=== PATIENT | female | born 1960 | race Caucasian/White ===

== ENCOUNTER 2021-11-16 11:40 | Outpatient (CLI) | payer BC, SELFPAY ==
--- NOTE | ~2021-11-16 | NM_ITS ---
EXAMINATION: NM pulmonary perfusion DATE: 11/16/2021 12:53 INDICATION: Dyspnea on exertion TECHNIQUE: 5.6 mCi Tc-99m MAA by intravenous route. Scintigraphic images of the chest were obtained. COMPARISON: Chest radiograph dated 11/16/2021 FINDINGS: There is relatively homogeneous perfusion throughout the lungs. No discrete perfusion defects identi fied. IMPRESSION: 1. Normal study. Low probability for pulmonary embolism. Reviewed, dictated and finalized at location A.
--- NOTE | ~2021-11-16 | XR_ITS ---
EXAMINATION: XR chest 2V 11/16/2021 12:13 INDICATION: Dyspnea with exertion PROCEDURE: 2 view chest COMPARISON: No prior studies for comparison. FINDINGS: The lungs are clear. The cardiomediastinal silhouette is within normal limits. There are no pleural effusions. There is no pneumothorax suspected. There is an oval radiopaque device overly ing the upper chest anteriorly on the lateral view, likely external to the patient. There are cholecy stectomy clips. IMPRESSION: 1: NO ACUTE CARDIOPULMONARY DISEASE. Reviewed, dictated and finalized at location A.
--- NOTE | 2021-11-17 06:41 | WPDSIXMINUTE ---
Six Minute Walk Procedure Procedure Performed Pulmonary Stress Test (6 min walk) Six Minute Walk Six Minute Walk: This is a 6 minute walk test. The test was performed and interpreted in accordance with the 2014 ERS/ATS task force guidelines. Findings: The patient's resting room air oxygen saturation measured by pulse oximetry was 95% and heart rate was 99 bpm. Patient ambulated for 335 meters and oxygen saturation remained 93 to 96%. Heart rate at the end of the study was 115 bpm. The patient did not qualify for supplemental oxygen at rest or with ambulation. There are no prior studies for comparison.
--- NOTE | 2021-11-17 06:42 | P.PCNPFT_ITS ---
PFT Procedure Performed PFT Procedure Performed Flow Vol Loop Spirometry w/o Bronchodil PFT Interpretation This is a pulmonary function test with spirometry, plethysmography and diffusing capacity. The test was performed and results interpreted in accordance with the 2019 and 2005 ATS/ERS Task Force guidelines respectively using the Global Lung Function Initiative-2012 reference equations. Patient demonstrated good effort and cooperation. Reproducibility criteria were met. The quality of the spirometry maneuver was Grade A. Findings: Spirometry: the contour the inspiratory and expiratory flow tracing are normal. The FVC is 2.49 L, 74% predicted. The FEV1 is 1.90 L, 73% predicted. The FEV1: FVC ratio is 77%. Respiratory muscle force: The maximal inspiratory pressure is 95 cm H2O, 131% predicted. The maximal expiratory pressure is 50 cm H2O, 36% predicted Impression: The spirometry is normal without evidence of an obstructive abnormality. The FVC and FEV1 are mildly reduced with a normal FEV1: FVC ratio suggestive of a ventilatory abnormality. If clinically indicated recommend plet hysmography to assess lung volumes. The maximal inspiratory pressure is normal and the maximal expiratory pressure value is below the lower limit of normal which is defined as the 5th percentile of predicted and thus suggests the presence of expiratory respiratory muscle weakness. Clinical correlation is recommended. In compared to previous spirometry from 09/09/2021 from an outside facility the pre bronchodilator FVC is unchanged from 2.25 L to 2.49 L. The pre bronchodilator FEV1 is unchanged from 1.71 L to 1.90 L. Clinical correlation is recommended.
== END 2021-11-16 11:41 | disposition home or self-care (01) ==
PROVIDERS: PCP Family Medicine; Visit Provider Internal Medicine Pulmonary Disease
DX: R06.09 Other forms of dyspnea (principal)
CPT/HCPCS: 71046; 78580; 94200; 94375; 94618; A9540

== ENCOUNTER 2021-11-20 07:28 | Outpatient (CLI) | payer BC, SELFPAY ==
--- NOTE | 2021-12-14 10:48 | WPDSLEEPSTUD ---
Sleep Study Date of Study: 11/20/21 Ordering Provider: Al Anderson MD Interpreting Physician: Malina Lenz MD Sleep Study Type: Split Polysomnogram Height: 1.68 m Weight: 104.326 kg Body Mass Index: 37.1 Neck Circumference (inches): 15 Mathews: 20 Reason for Sleep Study Difficulty falling asleep, waking through the night, non-restorative sleep Sleep History Rayne Ha is a 61-year-old woman who has problems falling asleep. She wakes throughout the night. She wakes up with a headache and she feels fatigued. There is a family history with her brother having sleep apnea. An uncle from sleep apnea. She has used muscle relaxers and other medicines to help her with sleep. She occasionally awakens from sleep feeling short of breath. She rarely awakens at night with heartburn, belching or coughing. She occasionally snores, occasionally loudly enough that others complain about it. She frequently has trouble sleeping with a cold. She frequently wakes up gasping for breath at night. She frequently has breathing problems at night observed by others. She occasionally sweats excessively at night and notices her heart pounding or beating irregularly at night. She constantly falls asleep during the day, occasionally involuntarily, never while driving. She constantly has loss of muscle tone with strong emotion and daytime difficulties due to excessive sleepiness. She occasionally feels paralyzed on waking or falling asleep. She occasionally has vivid dreamlike scenes on waking or falling asleep. She does not feel afraid to go to sleep. She rarely has nightmares. She occasionally remembers her dreams. She occasionally has racing thoughts, feelings of sadness, depression and anxiety. She constantly has muscular tension. She rarely notices parts of her body jerking. She constantly kicks at night. She frequently has crawling aching feelings in her legs. She constantly has leg pain at night. She occasionally has morning jaw pain. She rarely grinds her teeth at night. She constantly is bothered by pain during the day, awakened by pain at night, wakes up feeling stiff in the morning with sore achy muscles and pain in the neck and spine. She has memory problems and concentration difficulties. Normal Bedtime is between 10 and 11:00 p.m., taking hours fall asleep, typically waking 3-4 times at night to get a drink of water, smoke a cigarette and go to the bathroom. It takes her 30 minutes to return to sleep. She estimates getting 8-10 hours of sleep at night. Her normal wake time is 8:00 a.m.. Schedule is the same on weekends. She takes naps in the afternoon or evening. A short nap is not refreshing. She is drowsy for 3 hours after waking. She feels better in the evening compared to other times of day. Habits: Tobacco 1 pack a day for 40 years. Caffeine 4-6 servings of tea a day. No alcohol or recreational drugs. [facility] Past Medical History Medical History Diabetes KENDALL (dyspnea on exertion) Hyperlipidemia Hypertension Systemic lupus erythematosus Tobacco use Family History Family History Other Diabetes mellitus Social History Social History Smoking status: Heavy tobacco smoker Alcohol intake: never Medications Home Medications Medication Instructions Recorded Confirmed Type albuterol sulfate 90 mcg/actuation 1 puff inhalation Q4H PRN 11/10/21 11/10/21 History aerosol inhaler belimumab 200 mg/mL subcutaneous 200 mg subcut WEEKLY 11/10/21 11/10/21 History auto-injector (Benlysta) bupropion HCl 150 mg tablet,12 hr 150 mg PO QAM 11/10/21 11/10/21 History sustained-release (Wellbutrin SR) diclofenac potassium 25 mg capsule 25 mg PO BID 11/10/21 11/10/21 History diclofenac sodium 1 % topical gel 2 g topical QID 11/10/21 11/10/21 History (Voltaren Arthritis Pain) bruce
[2021-12-14 11:28] VITALS: BMI 37.1
== END 2021-11-21 05:44 | disposition home or self-care (01) ==
PROVIDERS: PCP Family Medicine; Visit Provider Internal Medicine Pulmonary Disease
DX: G47.10 Hypersomnia, unspecified (principal); G47.33 Obstructive sleep apnea (adult) (pediatric)
CPT/HCPCS: 95811

== ENCOUNTER 2022-03-03 11:13 | Emergency (ER) | payer BC, SELFPAY ==
--- NOTE | ~2022-03-03 | XR_ITS ---
EXAMINATION: XR lumbar spine 2-3V DATE: 03/03/2022 15:27 INDICATION: Midline lumbar pain. TECHNIQUE: 3 views of lumbar spine were obtained. COMPARISON: CT abdomen and pelvis 03/03/2022 FINDINGS: There is 9 degrees levocurvature of thoracolumbar spine. Vertebral body heights are normal. There is a benign bone island in L3 vertebral body. Intervertebral disc heights are normal. There ar e endplate osteophytes at most levels. There is multilevel facet joint osteoarthritis, severe in lowe r lumbar spine. Surgical clips in the right upper quadrant are likely from cholecystectomy. IMPRESSION: 1. Mild lumbar spondylosis. Reviewed, dictated and finalized at location A. P MANAGER IMPRESSION: 1. Mild lumbar spondylosis.
--- NOTE | ~2022-03-03 | CT_ITS ---
EXAMINATION: CT abdomen pelvis wo con DATE: 03/03/2022 15:25 INDICATION: Kidney stone. TECHNIQUE: Computed tomography (CT) of the abdomen and pelvis was performed without intravenous contr ast. Automated exposure control and iterative reconstruction technique were employed. The dose-length product was 1137.86 mGy-cm. COMPARISON: Chest CT 10/02/2021 FINDINGS: The visualized portions of the lung bases demonstrate mild scarring in paraspinal right low er lobe. No pleural effusion. The heart size is normal. No pericardial effusion. There is diffuse hep atic steatosis. Calcifications in the liver and spleen are consistent with old granulomatous disease. There are changes of cholecystectomy. The pancreas and right adrenal gland are normal. There is an 1 1 mm mass in left adrenal gland measuring low-attenuation, consistent with an adenoma. The kidneys ar e normal. There is no urolithiasis. There is diverticulosis of the colon without evidence of divertic ulitis. The appendix is normal. There are no dilated loops of bowel. There are no pathologically enla rged lymph nodes. There is no free intraperitoneal fluid. There is mild thoracolumbar spondylosis. Th ere is a benign bone island in L3 vertebral body. IMPRESSION: 1. No urolithiasis. Reviewed, dictated and finalized at location A. WARE CLERK IMPRESSION: 1. No urolithiasis.
[2022-03-03 11:44] VITALS: BP 133/76; PULSE 89; RESP 14; TEMP 36.6; O2SAT 97
[2022-03-03 12:06] LABS: Basophils Absolute Auto 0.1 K/mm3 (0.0-0.1); Basophils Percent Auto 1.1 % (0.2-1.2); Eosinophils Absolute Auto 0.3 K/mm3 (0-0.3); Eosinophils Percent Auto 2.4 % (0-4.4); Hematocrit 41.6 % (37.0-47.0); Hemoglobin 13.9 g/dL (12.0-15.0); Immature Granulocyte Absolute 0.14 K/mm3 (0.00-0.031); Immature Granulocyte Percent A 1.1 % (0-0.5); Lymphocytes Absolute Auto 2.87 K/mm3 (0.9-3.2); Lymphocytes Percent Auto 22.3 % (18.3-44.2); Mean Corpuscular HGB Conc 33.4 g/dl (32-36); Mean Corpuscular Hemoglobin 28.7 pg (26-34); Mean Corpuscular Volume 85.8 fl (80-100); Monocytes Absolute Auto 0.8 K/mm3 (0.1-0.6); Monocytes Percent Auto 5.8 % (2.6-8.5); Neutrophils Absolute Auto 8.6 K/mm3 (1.3-6.7); Neutrophils Percent Auto 67.3 % (45.5-73.1); Platelet Count Result 350 k/mm3 (150-375); Red Blood Count 4.85 M/mm3 (4.2-5.4); Red Cell Distribution Width 14.6 % (11.5-14.5); White Blood Count 12.9 K/mm3 (4.5-10.0)
[2022-03-03 12:15] LABS: Alanine Aminotransferase 24 U/L (6-35); Albumin Level 4.4 g/dL (3.5-5.1); Alkaline Phosphatase 68 U/L (38-126); Anion Gap 6 mmol/L (8-16); Aspartate Amino Transferase 18 U/L (14-36); Bilirubin,Total 0.2 mg/dL (0.2-1.3); Blood Urea Nitrogen 8 mg/dL (7-17); Calcium 8.9 mg/dL (8.4-10.2); Carbon Dioxide 28 mmol/L (22-30); Chloride 104 mmol/L (98-107); Estimated CRCL calculation 99 ml/min; Estimated Glomerular Filt Rate > 60; Glucose 115 mg/dL (65-110); Potassium 3.8 mmol/L (3.4-5.0); Sodium 138 mmol/L (137-145)
[2022-03-03 12:53] LABS: Appearance Urine Clear (Clear); Bilirubin Urine Negative (Negative); Blood Urine 1+ (Negative); Color Urine Yellow (Yellow); Glucose Urine UA Negative (Negative); Ketones Urine Negative (Negative); Leukocyte Esterase Ur Negative LEU/UL (Negative); Nitrate Urine Negative (Negative); Protein Urine Negative (Negative); Specific Grav Ur <= 1.005 (1.001-1.035); Urobilinogen Urine 0.2 mg/dL (<2.0); pH Urine 5.5 (5.0-9.0)
[2022-03-03 13:03] LABS: Mucus Urine Rare /lpf; RBC Urine 0-2 /hpf (0-2); Squamous Epithelial Cell Urine Few /hpf (Few); WBC Urine 0-3 /hpf
[2022-03-03 13:12] LABS: Add Urine Microscopic? YES
--- NOTE | 2022-03-03 14:52 | ED.GENADULT ---
HPI - General Adult General Chief complaint: Back Pain/Injury Stated complaint: back pain Time Seen by Provider: 03/03/22 14:35 Source: patient Mode of arrival: other Limitations: no limitations History of Present Illness HPI narrative: Rayne Ha is a 62 y/o female who presents with significant past medical history of lupus, chronic UTI she has an as needed order for antibiotics for UTIs. She reports she started to have discoloration and right flank pain about 5-6 days ago. She started taking Cipro 2 days ago. She reports her urine looks to be improving, however she still has right flank pain. She reports pain is worse with movement, denies abdominal pain/fever/chills/nausea/vomiting. Related Data Home Medications Medication Instructions Recorded Confirmed albuterol sulfate 90 mcg/actuation 1 puff inhalation Q4H PRN 11/10/21 02/17/22 aerosol inhaler belimumab 200 mg/mL subcutaneous 200 mg subcut WEEKLY 11/10/21 02/17/22 auto-injector (Benlysta) diclofenac potassium 25 mg capsule 25 mg PO BID 11/10/21 02/17/22 diclofenac sodium 1 % topical gel 2 g topical QID 11/10/21 02/17/22 (Voltaren Arthritis Pain) ergocalciferol (vitamin D2) 1,250 1,250 mcg PO WEEKLY 11/10/21 02/17/22 mcg (50,000 unit) capsule hydroxychloroquine 200 mg tablet 200 mg PO DAILY 11/10/21 02/17/22 insulin degludec 200 unit/mL (3 20 unit subcut DAILY 11/10/21 02/17/22 mL) subcutaneous pen (Tresiba FlexTouch U-200 insulin) metformin 500 mg tablet 500 mg PO DAILY 11/10/21 02/17/22 montelukast 10 mg tablet 10 mg PO DAILY 11/10/21 02/17/22 tramadol 50 mg tablet 50 mg PO Q4H PRN 11/10/21 02/17/22 dulaglutide 4.5 mg/0.5 mL 4.5 mg subcut 02/17/22 02/17/22 subcutaneous pen injector (Trulicity) losartan 50 mg tablet (Cozaar) 50 mg PO DAILY 02/17/22 02/17/22 Allergies Allergy/AdvReac Type Severity Reaction Status Date / Time aspirin Allergy Unknown Unknown Verified 03/03/22 11:46 glimepiride [From Amaryl] AdvReac Unknown Unknown Verified 03/03/22 11:46 lisinopril AdvReac Unknown Unknown Verified 03/03/22 11:46 sulfamethoxazole AdvReac Unknown Unknown Verified 03/03/22 11:46 [From Bactrim] trimethoprim [From Bactrim] AdvReac Unknown Unknown Verified 03/03/22 11:46 Review of Systems Review of Systems: CONSTITUTIONAL: Denies fever, chills, or sweats. EYES: Denies visual changes, redness, or discharge. ENT: Denies rhinorrhea, congestion, sore throat, or otalgia. CARDIOVASCULAR: Denies chest pain, palpitations, or edema. RESPIRATORY: Denies cough or dyspnea. GASTROINTESTINAL: Denies abdominal pain, nausea, vomiting, or diarrhea. GENITOURINARY: Denies dysuria or hematuria. SKIN: Denies rash or itching. MUSCULOSKELETAL: Reports right flank pain with movement .. NEUROLOGIC: Denies headache, numbness, dizziness, or weakness. PSYCHIATRIC: Denies anxiety or depression. [facility] Past Medical History Medical History Diabetes KENDALL (dyspnea on exertion) Hyperlipidemia Hypertension Systemic lupus erythematosus Tobacco use Family History Family History Other Diabetes mellitus Social History Social History Smoking status: Heavy tobacco smoker Alcohol intake: never Exam Narrative: GENERAL: Well-appearing, well-nourished, and in no acute distress. HEAD: Normocephalic, atraumatic. EYES: PERRLA and EOMI. ENT: Nares clear, no rhinorrhea or epistaxis. Mucous membranes moist. Oropharynx without tonsillar hypertrophy exudate or other lesions. NECK: Supple. No adenopathy or masses. No carotid bruits or JVD CHEST: Clear to auscultation. No respiratory distress. No wheezes rales or rhonchi HEART: Regular rate and rhythm. No murmur heard. Normal peripheral pulses. ABDOMEN: Soft, nontender, nondistended, normal active bowel sounds. EXTREMITIES: Normal range of motion. No edema. Pain to lumbar spine with palpation and adjacent to lumb
[2022-03-03] MEDS: ORPHENADRINE CITRATE 100 MG TABLET.ER PO (15:36)
[2022-03-03] MEDS: ACETAMINOPHEN 500 MG TABLET 1000 MG PO (15:36)
== END 2022-03-03 16:15 | disposition home or self-care (01) ==
PROVIDERS: Family Medicine; Emergency Provider Nurse Practitioner Family; PCP Family Medicine
DX: M47.816 Spondylosis without myelopathy or radiculopathy, lumbar region (principal); T14.8XXA Other injury of unspecified body region, initial encounter; E11.9 Type 2 diabetes mellitus without complications; E78.5 Hyperlipidemia, unspecified; I10 Essential (primary) hypertension; F17.200 Nicotine dependence, unspecified, uncomplicated; Z79.4 Long term (current) use of insulin; X58.XXXA Exposure to other specified factors, initial encounter
CPT/HCPCS: 36415; 72100; 74176; 80053; 81001; 85025; 99284; A9270

== ENCOUNTER 2022-11-18 07:56 | Outpatient (CLI) | payer BC, SELFPAY ==
--- NOTE | ~2022-11-18 | CT_ITS ---
CT Scan of the Chest without Contrast: Clinical Indication: Lupus, dyspnea on exertion Technique: Contiguous sections were acquired throughout the chest without intravenous contrast. Dose reduction technique was used on this scan by utilizing automated exposure control and iterative recon struction technique. The dose-length product (DLP) was 280.11 mGy-cm. Findings: There is no evidence of any significant mediastinal, hilar or axillary lymphadenopathy. Small calcifi ed mediastinal and right hilar lymph nodes are present. The mediastinal soft tissues appear normal. There is no evidence of pleural or pericardial effusion. The lungs are clear. No pulmonary nodules or infiltrates are noted. Images through the upper abdomen reveal small low-density left adrenal nodule, most likely adenoma. C holecystectomy clips are present. Impression: No significant pulmonary abnormality. Reviewed, dictated and finalized at [facility]. Impression: No significant pulmonary abnormality.
--- NOTE | 2022-11-18 13:57 | WPDPFTINT ---
PFT Procedure Performed PFT Procedure Performed Spirometry with Pre/Post Bronchodilator Plethysmography (Lung Vol) Diffusing Cap (DLCO) Flow Vol Loop PFT Interpretation Lung volumes were measured with the body plethysmography method. Lung volumes are unremarkable. Spirometry showed diminished expiratory flow rates and a normal FEV1 to FVC ratio of 75%. Following administration of a bronchodilator there was no significant increase in expiratory flow rates. Lung diffusion capacity is mildly reduced at 64% predicted. The flow-volume loop is unremarkable. In comparison to previous spirometry in November of 2021, forced vital capacity and FEV1 have not significantly changed. Impression: Nonspecific pattern. Mild reduction in lung diffusion capacity.
== END 2022-11-18 07:57 | disposition home or self-care (01) ==
PROVIDERS: PCP Family Medicine; Visit Provider Internal Medicine Pulmonary Disease
DX: M32.9 Systemic lupus erythematosus, unspecified (principal)
CPT/HCPCS: 71250; 94060; 94726; 94729

== ENCOUNTER 2023-11-15 10:09 | Outpatient (CLI) | payer BC, SELFPAY ==
--- NOTE | ~2023-11-15 | CT_ITS ---
CT Scan of the Chest without Contrast: Clinical Indication: Pulmonary nodule Technique: Contiguous sections were acquired throughout the chest without intravenous contrast. Dose reduction technique was used on this scan by utilizing automated exposure control and iterative recon struction technique. The dose-length product (DLP) was 113.46 mGy-cm. COMPARISON: 11/18/2022 Findings: There is no evidence of any significant mediastinal, hilar or axillary lymphadenopathy. Calcified rig ht hilar lymph node noted. The mediastinal soft tissues otherwise appear normal. There is no evidence of pleural or pericardial effusion. The lungs are clear. No pulmonary nodules or infiltrates are noted. Images through the upper abdomen reveal no abnormalities. Impression: No significant abnormalities seen. Reviewed, dictated and finalized at location . Impression: No significant abnormalities seen.
== END 2023-11-15 10:10 | disposition home or self-care (01) ==
PROVIDERS: PCP Family Medicine; Visit Provider Internal Medicine Pulmonary Disease
DX: R91.1 Solitary pulmonary nodule (principal)
CPT/HCPCS: 71250

== ENCOUNTER 2024-12-06 14:41 | Outpatient (CLI) | payer MEDICARE, BC, SELFPAY ==
--- OUTSIDE RECORDS SUMMARY | 2023-10-20 04:00 | XMS_ITS ---
Author Organization [facility] Address [address] [place] [id number] Care Team Providers Care Braider Setter Name Role Phone Dr. Clary Cardenas Primary Care Provider [phone] Migration, Provider Unavailable Unavailable REASON FOR VISIT EMR-Haim Encounters Encounter Location Date Provider Diagnosis [facility] [address] [place] [address] 10/20/2023 Provider Migration Tobacco use Z72.0 ; Type 2 diabetes mellitus with diabetic neuropathy, unspecified E11.40 ; Vitamin D deficiency, unspecified E55.9 ; Hyperlipidemia, unspecified E78.5 ; Deficiency of other specified B group vitamins E53.8 and Essential (primary) hypertension I10 Assessments Encounter Date Diagnosis (ICD Code) Assessment Notes Treatment Notes Treatment Clinical Notes Section Notes 10/20/2023 Tobacco use (ICD-10 - Z72.0) 10/20/2023 Type 2 diabetes mellitus with diabetic neuropathy, unspecified (ICD-10 - E11.40) 10/20/2023 Vitamin D deficiency, unspecified (ICD-10 - E55.9) 10/20/2023 Hyperlipidemia, unspecified (ICD-10 - E78.5) 10/20/2023 Deficiency of other specified B group vitamins (ICD-10 - E53.8) 10/20/2023 Essential (primary) hypertension (ICD-10 - I10) Plan Of Treatment Next Appt Details Provider Name:Dr. Clary alonzo, 12/07/2024 03:30:00 PM, [address] [facility], [place], [address], [phone] Provider Name:Dr. Clary alonzo, 11/28/2025 04:00:00 PM, [address] [facility], [place], [address], [phone] Progress Notes * Aguila TEAGUEB:1960 (64 yo F)Acc No.[id number]:10/20/2023 Patient: Rayne Ng Provider: Sabiha Kapadia :1960 A ge:63 Y S ex:Female Date:10/20/2023 Phone: Address:[address] [place] [address], [place], [id number] Pcp:Dr. Clary Cardenas Subjective: * Chief Complaints: * E MR-Haim Objective: Past Vitals:* 04/27/2023 BP: 118/68 mm Hg, HR: 101 /m in, Oxygen sat %: 99 %, Wt: 186.38 lbs, Wt-k.54 kg * 04/22/2023 BP: 118/76 mm Hg, HR: 78 /mi n, Oxygen sat %: 98 %, Wt: 186.00 lbs, Wt-k.37 kg Assessment: * Assessment: 1. T ype 2 diabetes mellitus with diabetic neuropathy, unspecified - E11.40 S pecify :Src Diagnosis Name: Type 2 diabetes, controlled, with neuropathy 2 . D eficiency of other specified B group vitamins - E53.8 S pecify :Src Diagnosis Name: Vitamin B12 deficiency 3 . V itamin D deficiency, unspecified - E55.9 S pecify :Src Diagnosis Name: Vitamin D deficiency 4 . H yperlipidemia, unspecified - E78.5 S pecify :Src Diagnosis Name: Hyperlipidemia 5 . E ssential (primary) hypertension - I10 6 . T obacco use - Z72.0 * Electronic signature of Prov ider Migration on 12/06/2024 at 03:48 PM CDT Sign off status: Pending * Provider: Sabiha jiang Migration Date: 0 10/20/2023 Generated for Sharon robertson/Kaleigh/eTransmitting on: 1 03:48 PM CDT
--- OUTSIDE RECORDS SUMMARY | 2023-11-09 04:00 | XMS_ITS ---
Author Organization [facility] d[facility] Address [address] [place] [id number] Care Team Providers Care Friend Of The Court Name Role Phone Dr. Clary Cardenas Primary Care Provider [phone] REASON FOR VISIT Med check Immunizations Vaccine Route Administration Date Status Comme nts Influenza, seasonal, injectable, preservative free, 3 yrs and above IM Intramuscular 11/09/2023 Administered ,sourcename : N ew immunization record ,immstatus : Complete [employer] Covid-19 Vaccine 1st dose IM Intramuscular 11/09/2023 Administered ,sourcename : N ew immunization record ,immstatus : Complete Vital Signs Temperature 97.4 degrees Fahrenheit 11/09/19 24 Blood pressure systolic 124 mm Hg 11/09/19 24 Blood pressure diastolic 72 mm Hg 024 Heart Rate 80 /min 11/09/2023 Respiratory Rate 16 /min 11/09/2023 Height 66.00 in 11/09/2023 Weight 180.01 lbs 11/09/2023 BMI 29.05 kg/m2 11/09/2023 Oximetry 98 % 11/09/2023 Height-cm 167.64 cm 11/09/2023 Weight-kg 81.65 kg 11/09/2023 Encounters Encounter Location Date Provider Diagnosis [address] [address] 11/09/2023 Dr. Clary Cardenas Pain in left shoulder M25.512 ; Other long chain beamer (current) drug therapy Z79.899 ; Essential (primary) hypertension I10 ; Vomiting, unspecified R11.10 ; Type 2 diabetes mellitus with diabetic neuropathy, unspecified E11.40 ; Other constipation K59.09 ; Tobacco use Z72.0 ; Actinic keratosis 702.0 ; Systemic lupus erythematosus, organ or system involvement unspecified M32.10 ; Unspecified thoracic, thoracolumbar and lumbosacral intervertebral disc disorder M51.9 ; Encounter for other screening for malignant neoplasm of breast Z12.39 ; Vitamin D deficiency, unspecified E55.9 ; 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 ; Asymptomatic menopausal state Z78.0 and Spinal stenosis, thoracic region M48.04 Assessments Encounter Date Diagnosis (ICD Code) Assessment Notes Treatment Notes Treatment Clinical Notes Section Notes 11/09/2023 Pain in left shoulder (ICD-10 - M25.512) 11/09/2023 Other halfway (current) drug therapy (ICD-10 - Z79.899) 11/09/2023 Essential (primary) hypertension (ICD-10 - I10) 11/09/2023 Vomiting, unspecified (ICD-10 - R11.10) 11/09/2023 Type 2 diabetes mellitus with diabetic neuropathy, unspecified (ICD-10 - E11.40) 11/09/2023 Other constipation (ICD-10 - K59.09) 11/09/2023 Tobacco use (ICD-10 - Z72.0) 11/09/2023 Actinic keratosis (ICD9-CM - 702.0) 11/09/2023 Systemic lupus erythematosus, organ or system involvement unspecified (ICD-10 - M32.10) 11/09/2023 Unspecified thoracic, thoracolumbar and lumbosacral intervertebral disc disorder (ICD-10 - M51.9) 11/09/2023 Encounter for other screening for malignant neoplasm of breast (ICD-10 - Z12.39) 11/09/2023 Vitamin D deficiency, unspecified (ICD-10 - E55.9) 11/09/2023 Immunodeficiency due to drugs (ICD-10 - D84.821) 11/09/2023 Asymptomatic menopausal state (ICD-10 - Z78.0) 11/09/2023 Spinal stenosis, thoracic region (ICD-10 - M48.04) Plan Of Treatment Next Appt Details Provider Name:Dr. Clary alonzo, 12/07/2024 03:30:00 PM, [facility] [place], [address], [phone] Provider Name:Dr. Clary alonzo, 11/28/2025 04:00:00 PM, [address], [place], [address], [phone] Progress Notes * Aguila TEAGUEB:1960 (64 yo F)Acc No.[id number]:11/09/2023 Patient: Rayne Ng Provider: Miriam Cardenas MD :1960 A ge:63 Y S ex:Female Date:11/09/2023 Phone: Address:[address] [place] [address], [id number] Subjective: * Chief Complaints: * M ed check Objective: * Vitals: B P: 124/72 mm Hg, HR: 80 /min, RR: 16 /min, Temp: 97.4 F, Oxygen sat %: 98 %, Ht: 66.00 in, Wt: 180.01 lbs, Wt-k.65 kg, Ht-cm: 167.64 cm, BMI: 29.05 Index. Past Vitals:* 04/27/2023 BP: 118/68 mm Hg, HR: 101 /m in, Oxygen sat %: 99 %, Wt: 186.38 lbs, Wt-k.54 kg * 04/22/2023 BP: 118/76 mm Hg, HR: 78 /mi n, Oxygen sat %: 98 %, Wt: 186.00 lbs, Wt-k.37 kg Assessment: * Assessment: 1. A ctinic keratosis - 702.0 S pecify :Src Diagnosis Name: ( - 702.0) Actinic keratosis 2 . T ype 2 diabetes mellitus with diabetic neuropathy, unspecified - E11.40? Specify :Src Diagnosis Name: Type 2 diabetes, controlled, with neuropathy 3 . V itamin D deficiency, unspecified - E55.9 S pecify :Src Diagnosis Name: Vitamin D deficiency 4 . E ssential (primary) hypertension - I10 5 . O ther constipation - K59.09 S pecify :Src Diagnosis Name: Chronic constipation 6 . P ain in left shoulder - M25.512 S pecify :Src Diagnosis Name: Left shoulder pain 7 . S ystemic lupus erythematosus, organ or system involvement unspecified - M32.10 S pecify :Src Diagnosis Name: (M32.10 - ) Systemic lupus erythematosus, organ or system involvement unspecified 8 . S matthew stenosis, thoracic region - M48.04 S pecify :Src Diagnosis Name: Spinal stenosis, thoracic 9 . U nspecified thoracic, thoracolumbar and lumbosacral intervertebral disc disorder - M51.9 S pecify :Src Diagnosis Name: Lumbar disc disease 1 0. V omiting, unspecified - R11.10 S pecify :Src Diagnosis Name: Vomiting 1 1. E ncounter for other screening for malignant neoplasm of breast - Z12.39? Specify :Src Diagnosis Name: Screening for breast cancer 1 2. T obacco use - Z72.0 1 3. A symptomatic menopausal state - Z78.0 S pecify :Src Diagnosis Name: Postmenopausal 1 4. 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 Clary Cardenas on 12/06/2024 at 03:49 PM CDT Sign off status: Pending * Provider: Miriam Cardenas MD Date: 0 11/09/2023 Generated for Sharon robertson/Kaleigh/eTriley on: 1 03:49 PM CDT
--- OUTSIDE RECORDS SUMMARY | 2024-01-14 04:00 | XMS_ITS ---
Author Organization [facility], [facility] Address [address] [place] [address] Care Team Providers Care Telex Operator Name Role Phone Dr. Clary Cardenas Primary Care Provider [phone] Migration, Provider Unavailable Unavailable REASON FOR VISIT EMR-Haim Encounters Encounter Location Date Provider Diagnosis [facility] [address] [place] [address] 01/14/2024 Provider Migration Plan Of Treatment Medication Medication Name Sig Start Date Stop Date Notes Voltaren Arthritis Pain topical; Duration: 0 08/20/2021 ,discontinuereason: Discontinued *Pick strength-form from [employer] for eRX* Syringe 3 mL SYRINGE, EMPTY DISPOSABLE MISCELLANEOUS; Duration: 0 08/16/2022 11/06/2023 ,discontinuereason: Discontinued Venlafaxine HCl ER 37.5 MG Capsule Extended Release 24 Hour 1 Oral two times a day; Duration: 90 10/22/2022 12/29/2022 ,discontinuereason: Refilled Trulicity 4.5 MG/0.5ML Solution Pen-injector Subcutaneous; Duration: 0 01/05/2023 11/06/2023 ,discontinuereason: Discontinued ProAir RespiClick 108 (90 Base) MCG/ACT Aerosol Powder Breath Activated 1 Inhalation every 4-6 hours; Duration: 0 10/02/2021 03/10/2022 ,discontinuereason: Discontinued,PRN Reason:for cough predniSONE 10 MG Tablet 1 Oral; Duration: 0 11/21/2020 ,discontinuereason: Discontinued Diclofenac Sodium 75 MG Tablet Delayed Release 1 Oral two times a day; Duration: 30 04/08/2022 05/07/2022 Cephalexin 500 MG Capsule 1 Oral three times a day; Duration: 10 11/14/2021 11/23/2021 Isosorbide Mononitrate ER 30 MG Tablet Extended Release 24 Hour 1 Oral every day; Duration: 0 01/28/2022 12/29/2022 ,discontinuereason: Discontinued Lubiprostone 24 MCG Capsule 1 Oral every day; Duration: 90 06/07/2022 09/04/2022 ranolazine 500 mg Tablet(s) 1 BY MOUTH two times a day; Duration: 0 12/23/2022 04/21/2023 ,discontinuereason: Discontinued *Reorder from [employer] for eRx and Interaction Alerts* PEN NEEDLE 32 gauge x 1/4 NEEDLE, DISPOSABLE MISCELLANEOUS; Duration: 0 08/06/2021 08/06/2021 *Reorder from [employer] for eRx and Interaction Alerts* Metoprolol Succinate ER 25 MG Tablet Extended Release 24 Hour 1 Oral every day; Duration: 0 11/21/2020 11/25/2020 cardio stopped,discontinue reason:Discontinued Cipro 500 MG Tablet 1 Oral two times a day; Duration: 5 07/16/2021 07/20/2021 metFORMIN HCl ER 500 MG Tablet Extended Release 24 Hour 1 Oral every day; Duration: 0 11/15/2022 04/21/2023 ,discontinuereason: Discontinued Benlysta subcutaneous; Duration: 0 08/20/2021 01/27/2022 ,discontinuereason: Discontinued *Pick strength-form from [employer] for eRX* tiZANidine HCl 2 MG Tablet 1 to 2 Oral three times a day; Duration: 0 12/30/2020 12/30/2020 Crestor 10 MG Tablet 1 Oral every day; Duration: 0 12/25/2020 07/08/2021 ,discontinuereason: Discontinued LUER-SRUTHI SYRINGE-NEEDLE 3 mL 25 gauge x 1 SYRINGE, EMPTY DISPOSABLE MISCELLANEOUS; Duration: 28 09/20/2022 10/17/2022 *Reorder from [employer] for eRx and Interaction Alerts* Voltaren Arthritis Pain 1 % Topical; Duration: 0 11/26/2020 11/06/2023 ,discontinu ereason: Discontinued *Pick strength-form from [facility] for eRX* Repatha SureClick 140 mg/mL Solution Auto-injector Subcutaneous; Duration: 04/04/2023 09/30/2023 metFORMIN HCl 500 MG Tablet 1 Oral two times a day; Duration: 0 09/22/2020 11/25/2020 ,discontinuereason: Discontinued Amitiza 24 MCG Capsule 1 Oral every day; Duration: 03/11/2022 03/11/2022 Rx Refill Request,discontinue reason:Refilled Wellbutrin SR 150 MG Tablet Extended Release 12 Hour 1 Oral two times a day; Duration: 08/20/2021 03/10/2022 ,discontinuereason: Discontinued Trulicity 3 MG/0.5ML Solution Pen-injector 0.5 Subcutaneous once a week; Duration: 07/27/2023 01/02/2024 increased dose,discontinuerea son:Discontinued Benzonatate 100 MG Capsule 1 Oral three times a day; Duration: 06/23/2021 07/22/2021 Mupirocin 2 % Ointment 1 External two ti mes a day; Duration: 03/11/2023 04/07/2023 Fluconazole 150 MG Tablet 1 Oral every day; Duration: 10/20/2023 10/26/2023 Doxycycline Hyclate 100 MG Tablet 1 Oral two times a day; Duration: 02/11/2023 02/20/2023 Cyanocobalamin 1000 MCG/ML Solution 1 Injection Monthly; Duration: 06/01/2023 11/06/2023 ,discontinuereason: Discontinued FreeStyle Barry 14 Day Sensor - Miscellaneous ; Duration: 0 12/28/2022 12/28/2022 Trulicity 1.5 MG/0.5ML Solution Pen-injector 0.5ml Subcutaneous once a week; Duration: 08/20/2021 01/27/2022 ,discontinuereason: Discontinued Losartan Potassium 50 MG Tablet 1 Oral every day; Duration: 11/21/2020 01/12/2021 Rx Refill Request,discontinue reason:Refilled Effexor XR 75 MG Capsule Extended Release 24 Hour 1 Oral every day; Duration: 04/22/2023 11/08/2023 ,discontinuereason: Discontinued Tresiba FlexTouch 200 UNIT/ML Solution Pen-injector Subcutaneous; Duration: 0 12/30/2022 11/08/2023 ,discontinuereason: Discontinued Montelukast Sodium 10 MG Tablet 1 Oral at bed time; Duration: 0 08/11/2020 04/23/2023 ,discontinuereason: Refilled Next Appt Details Provider Name:Dr. Clary alonzo, 12/07/2024 03:30:00 PM, [place], [address], [phone] Provider Name:Dr. Clary alonzo, 11/28/2025 04:00:00 PM, [employer], [place], [address], [phone] Progress Notes * Aguila TEAGUERadha:1960 (64 yo F)Acc No.[id number]:01/14/2024 Patient: Rayne GRANDA :1960 A ge:63 Y S ex:Female Phone: Address:[address] [place] [address], [facility] [address] * Refills Stop Amitiza Capsule, 24 MCG, Oral, 90, 1, every day, 90 Stop Lubiprostone Capsule, 24 MCG, Oral, 90, 1, every day, 90 Stop tiZANidine HCl Tablet, 2 MG, Oral, 40, 1 to 2, three times a day, 0 Stop Syringe SYRINGE, EMPTY DISPOSABLE, 3 mL, MISCELLANEOUS, 3, 0 Stop ProAir RespiClick Aerosol Powder Breath Activated, 108 (90 Base) MCG/ACT, Inhalation, 6.7, 22 Stop Voltaren Arthritis Pain, topical, 0 Stop Amitiza Capsule, 24 MCG, Oral, 90, 1, every day, 90 Stop Trulicity Solution Pen-injector, 4.5 MG/0.5ML, Subcutaneous, 6, 4.5, once a week, 90 Stop ProAir RespiClick Aerosol Powder Breath Activated, 108 (90 Base) MCG/ACT, Inhalation, 1, 1, every 4-6 hours, 0 Stop Repatha SureClick Solution Auto-injector, 140 mg/mL, Subcutaneous, 1, biweekly, 0 Stop Tresiba FlexTouch Solution Pen-injector, 200 UNIT/ML, Subcutaneous, 36, 0 Stop ProAir RespiClick Aerosol Powder Breath Activated, 108 (90 Base) MCG/ACT, Inhalation, 1, 1, every 4-6 hours, 0 Stop FreeStyle Barry 14 Day Sensor Miscellaneous, - , 6, 0 Stop Amitiza Capsule, 24 MCG, Oral, 90, 1, every day, 90 Stop Effexor XR Capsule Extended Release 24 Hour, 75 MG, Oral, 90, 1, every day, 90 Stop Fluconazole Tablet, 150 MG, Oral, 7, 1, every day, 7 Stop metFORMIN HCl ER Tablet Extended Release 24 Hour, 500 mg, Oral, 90, 1, every day, 0 Stop Venlafaxine HCl ER Capsule Extended Release 24 Hour, 37.5 MG, Oral, 90, 1, every day, 90 Stop Tresiba FlexTouch Solution Pen-injector, 200 UNIT/ML, Subcutaneous, 36, 76, every day, 30 Stop Crestor Tablet, 10 MG, Oral, 30, 1, every day, 0 Stop Diclofenac Sodium Tablet Delayed Release, 75 MG, Oral, 60, 1, two times a day, 30 Stop Fluconazole Tablet, 150 MG, Oral, 7, 1, every day, 7 Stop Metoprolol Succinate ER Tablet Extended Release 24 Hour, 25 MG, Oral, 1, every day, 0 Stop PEN NEEDLE NEEDLE, DISPOSABLE, 32 gauge x 1/4, MISCELLANEOUS, 100, 0 Stop Isosorbide Mononitrate ER Tablet Extended Release 24 Hour, 30 MG, Oral, 1/2, every day, 0 Stop Montelukast Sodium Tablet, 10 MG, Oral, 90, 1, at bed time, 0 Stop Trulicity Solution Pen-injector, 1.5 MG/0.5ML, Subcutaneous, 6, 0 Stop ProAir RespiClick Aerosol Powder Breath Activated, 108 (90 Base) MCG/ACT, Inhalation, 1, 1, every 4-6 hours, 0 Stop Tresiba FlexTouch Solution Pen-injector, 200 UNIT/ML, Subcutaneous, 36, 0 Stop FreeStyle Barry 14 Day Sensor Miscellaneous, - , 6, 0 Stop FreeStyle Barry 14 Day Sensor Miscellaneous, - , 6, 0 Stop FreeStyle Barry 14 Day Sensor Miscellaneous, - , 6, 0 Stop PEN NEEDLE NEEDLE, DISPOSABLE, 32 gauge x 1/4, MISCELLANEOUS, 100, 0 Stop Amitiza Capsule, 24 MCG, Oral, 90, 1, every day, 90 Stop Montelukast Sodium Tablet, 10 MG, Oral, 90, 1, at bed time, 0 Stop Trulicity Solution Pen-injector, 4.5 MG/0.5ML, Subcutaneous, 6, 4.5, once a week, 90 Stop Cyanocobalamin Solution, 1000 MCG/ML, Injection, 4, 1, 0 Stop Diclofenac Sodium Tablet Delayed Release, 75 MG, Oral, 60, 1, two times a day, 30 Stop predniSONE Tablet, 10 MG, Oral, 1, 0 Stop Syringe SYRINGE, EMPTY DISPOSABLE, 3 mL, MISCELLANEOUS, 4, 0 Stop ProAir RespiClick Aerosol Powder Breath Activated, 108 (90 Base) MCG/ACT, Inhalation, 3, 1, every 4-6 hours, 0 Stop Mupirocin Ointment, 2 %, External, 21, 1, two times a day, 14 Stop Venlafaxine HCl ER Capsule Extended Release 24 Hour, 37.5 MG, Oral, 30, 1, every night at bedtime, 30 Stop tiZANidine HCl Tablet, 2 MG, Oral, 40, 1 to 2, three times a day, 0 Stop Benlysta, subcutaneous, 0 Stop Venlafaxine HCl ER Capsule Extended Release 24 Hour, 37.5 MG, Oral, 30, 1, every night at bedtime, 30 Stop Voltaren Arthritis Pain, 1 %, Topical, 0 Stop LUER-SRUTHI SYRINGE-NEEDLE SYRINGE, EMPTY DISPOSABLE, 3 mL 25 gauge x 1, MISCELLANEOUS, 4, 28 Stop Cyanocobalamin Solution, 1000 MCG/ML, Injection, 3, 1, 0 Stop Losartan Potassium Tablet, 50 MG, Oral, 1, every day, 0 Stop Trulicity Solution Pen-injector, 3 MG/0.5ML, Subcutaneous, 7, 0.5, once a week, 90 Stop Trulicity Solution Pen-injector, 1.5 MG/0.5ML, Subcutaneous, 7, 0.5ml, once a week, 90 Stop Venlafaxine HCl ER Capsule Extended Release 24 Hour, 37.5 MG, Oral, 180, 1, two times a day, 90 Stop Trulicity Solution Pen-injector, 4.5 MG/0.5ML, Subcutaneous, 6, 0 Stop Benzonatate Capsule, 100 MG, Oral, 90, 1, three times a day, 30 Stop Cipro Tablet, 500 MG, Oral, 10, 1, two times a day, 5 Stop Cyanocobalamin Solution, 1000 MCG/ML, Injection, 4, 1, Monthly, 90 Stop Wellbutrin SR Tablet Extended Release 12 Hour, 150 MG, Oral, 180, 1, two times a day, 90 Stop metFORMIN HCl ER Tablet Extended Release 24 Hour, 500 MG, Oral, 90, 1, every day, 0 Stop Trulicity Solution Pen-injector, 4.5 MG/0.5ML, Subcutaneous, 6, 4.5, once a week, 30 Stop ranolazine Tablet(s), 500 mg, BY MOUTH, 1, two times a day, 0 Stop Cephalexin Capsule, 500 MG, Oral, 30, 1, three times a day, 10 Stop Isosorbide Mononitrate ER Tablet Extended Release 24 Hour, 30 MG, Oral, 1, every day, 0 Stop Wellbutrin SR Tablet Extended Release 12 Hour, 150 MG, Oral, 30, 0 Stop Benzonatate Capsule, 100 MG, Oral, 90, 1, three times a day, 30 Stop Crestor Tablet, 10 MG, Oral, 30, 1, every day, 0 Stop Cyanocobalamin Solution, 1000 MCG/ML, Injection, 9, 1, 90 Stop Doxycycline Hyclate Tablet, 100 MG, Oral, 20, 1, two times a day, 10 Stop Effexor XR Capsule Extended Release 24 Hour, 75 MG, Oral, 90, 1, every day, 90 Stop Wellbutrin SR Tablet Extended Release 12 Hour, 150 MG, Oral, 180, 1, two times a day, 90 Stop Trulicity Solution Pen-injector, 4.5 MG/0.5ML, Subcutaneous, 6, 4.5, once a week, 90 Stop Trulicity Solution Pen-injector, 3 MG/0.5ML, Subcutaneous, 7, 0.5, once a week, 90 Stop FreeStyle Barry 14 Day Sensor Miscellaneous, - , 6, 0 Stop Amitiza Capsule, 24 MCG, Oral, 90, 1, every day, 90 Stop Cyanocobalamin Solution, 1000 MCG/ML, Injection, 3, 1, Monthly, 90 Stop metFORMIN HCl Tablet, 500 MG, Oral, 180, 1, two times a day, 0 Stop metFORMIN HCl ER Tablet Extended Release 24 Hour, 500 mg, Oral, 1, every day, 0 Stop Venlafaxine HCl ER Capsule Extended Release 24 Hour, 37.5 MG, Oral, 90, 1, every day, 90 Stop Trulicity Solution Pen-injector, 3 MG/0.5ML, Subcutaneous, 7, 0.5, once a week, 90 Stop Trulicity Solution Pen-injector, 4.5 MG/0.5ML, Subcutaneous, 6, 4.5, once a week, 30 Stop Repatha SureClick Solution Auto-injector, 140 mg/mL, Subcutaneous, 6, 90 Stop Tresiba FlexTouch Solution Pen-injector, 200 UNIT/ML, Subcutaneous, 36, 0 Subjective: * Chief Complaints: * E -Haim Objective: Past Vitals:* 11/09/2023 BP: 124/72 mm Hg, HR: 80 /mi n, Oxygen sat %: 98 %, Wt: 180.01 lbs, Wt-k.65 kg * 04/27/2023 BP: 118/68 mm Hg, HR: 101 /m in, Oxygen sat %: 99 %, Wt: 186.38 lbs, Wt-k.54 kg * * Date:
--- OUTSIDE RECORDS SUMMARY | 2024-01-15 04:00 | XMS_ITS ---
Author Organization [facility] Address [address] [place] [address] Care Team Providers Care Senior Manufacturing Test Engineer Name Role Phone Dr. Clary Cardenas Primary Care Provider [phone] Migration, Provider Unavailable Unavailable Allergies Allergen (clinical drug ingredient) Drug/Non Drug Allergy documented on EMR Reaction Allergy Type Onset Date Status glimepiride Amaryl Unknown Drug Allergy 11/25/2020 Acti ve aspirin Aspirin hives Drug Allergy 11/21/2020 Active sulfamethoxazole / trimethoprim Bactrim rash and GI upset Drug Allergy 11/21/2020 Active lisinopril Lisinopril Unknown Drug Allergy 11/25/2020 Acti ve Norflex hives Drug Allergy 03/11/2022 Active rosuvastatin Rosuvastatin leg pain Drug Allergy 03/11/2022 Active salicylate (FN) Salicylates Unknown Drug Allergy Active REASON FOR VISIT EMR-Haim Medications Medication SIG (Take, Route, Frequency, Duration) Notes Start Date End Date Status Triamcinolone Acetonide 0.1 % Cream External two times a day; Duration: 0 06/30/2022 Active Trulicity 4.5 MG/0.5ML Solution Pen-injector 4.5 Subcutaneous once a week; Duration: 90 01/03/2024 5 Active Folic Acid 1 MG Tablet Oral; Duration: 0 Active tiZANidine HCl 2 MG Tablet 1 Oral Q6H; Duration: 0 03/11/2022 Active Nitroglycerin 0.4 MG Tablet Sublingual Sublingual; Duration: 0 11/21/2020 Active Methotrexate Sodium 2.5 MG Tablet Oral; Duration: 0 08/20/2021 Active Diclofenac Potassium oral; Duration: 0 *Pick strength-form from [employer] for eRX* 08/20/2021 Active Ammonium Lactate 12 % Lotion External; Duration: 0 05/14/2022 Active Losartan Potassium 50 MG Tablet 1 Oral every day; Duration: 0 01/12/2021 Active Benlysta 200 mg/mL Solution Auto-injector Subcutaneous; Duration: 28 04/28/2021 Active ergocalciferol (vitamin D2) 1,250 mcg (50,000 unit) Capsule 1 once a week; Duration: 0 *Reorder from [employer] for eRx and Interaction Alerts* 08/20/2021 Active Hydroxychloroquine Sulfate 200 MG Tablet 2 Oral every day; Duration: 0 11/21/2020 Active traMADol HCl 50 MG Tablet 1 Oral every four hours; Duration: 0 11/21/2020 Active Tretinoin 0.1 % Cream External; Duration: 0 05/14/2022 Active Social History Social History Additional Details Category Social Info Options Details Migrated Social History Migrated Social History Tobacco history:Current every day smoker ,notes : 1/2 PPD as of April 2023 , Number of cigarettes/day:20 (One Pack) Encounters Encounter Location Date Provider Diagnosis [facility] [address] [place] [address] 01/15/2024 Provider Migration Plan Of Treatment Next Appt Details Provider Name:Dr. Clary alonzo, 12/07/2024 03:30:00 PM, [facility] [place], [address], [phone] Provider Name:Dr. 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 B rother: Diabetes mellitus Type 2. * Social History: M igrated Social History: M igrated Social History: Tobacco history:Current every day smoker ,notes : 1/2 PPD as of April 2023,Number of cigarettes/day:20 (One Pack). * Medications: T akingDiclofenac Potassium oral , Notes to Pharmacist: *Pick strength-form from [employer] for eRX*Trulicity 4.5 MG/0.5ML Solution Pen-injector 4.5 Subcutaneous once a week , stop date 04/01/2024traMADol HCl 50 MG Tablet 1 Oral every four hours Tretinoin 0.1 % Cream External Triamcinolone Acetonide 0.1 % Cream External two times a day Methotrexate Sodium 2.5 MG Tablet Oral Ammonium Lactate 12 % Lotion External Folic Acid 1 MG Tablet Oral Nitroglycerin 0.4 MG Tablet Sublingual Sublingual tiZANidine HCl 2 MG Tablet 1 Oral Q6H Benlysta 200 mg/mL Solution Auto-injector Subcutaneous ergocalciferol (vitamin D2) 1,250 mcg (50,000 unit) Capsule 1 once a week , Notes to Pharmacist: *Reorder from [employer] for eRx and Interaction Alerts*Hydroxychloroquine Sulfate 200 MG Tablet 2 Oral every day Losartan Potassium 50 MG Tablet 1 Oral every day Taking Diclofenac Potassium oral , Notes to Pharmacist: *Pick strength-form from [employer] for eRX*Taking Trulicity 4.5 MG/0.5ML Solution Pen-injector 4.5 Subcutaneous once a week , stop date 04/01/2024Taking traMADol HCl 50 MG Tablet 1 Oral every four hours Taking Tretinoin 0.1 % Cream External Taking Triamcinolone Acetonide 0.1 % Cream External two times a day Taking Methotrexate Sodium 2.5 MG Tablet Oral Taking Ammonium Lactate 12 % Lotion External Taking Folic Acid 1 MG Tablet Oral Taking Nitroglycerin 0.4 MG Tablet Sublingual Sublingual Taking tiZANidine HCl 2 MG Tablet 1 Oral Q6H Taking Benlysta 200 mg/mL Solution Auto-injector Subcutaneous Taking ergocalciferol (vitamin D2) 1,250 mcg (50,000 unit) Capsule 1 once a week , Notes to Pharmacist: *Reorder from [facility] for eRx and Interaction Alerts*Taking Hydroxychloroquine Sulfate 200 MG Tablet 2 Oral every day Taking Losartan Potassium 50 MG Tablet 1 Oral every day * Allergies: A maryl: Allergy - Onset Date 11/25/2020spirin: hives - Allergy - Onset Date 11/21/2020actrim: rash and GI upset - Allergy - Onset Date 11/21/2020isinopril: Allergy - Onset Date 11/25/2020Norflex: hives - Allergy - Onset Date 03/11/2022Rosuvastatin: leg pain - Allergy - Onset Date 03/11/2022Salicylates: Allergy - Onset Date 11/25/2020 Objective: Past Vitals:* 11/09/2023 BP: 124/72 mm Hg, HR: 80 /mi n, Oxygen sat %: 98 %, Wt: 180.01 lbs, Wt-k.65 kg * 04/27/2023 BP: 118/68 mm Hg, HR: 101 /m in, Oxygen sat %: 99 %, Wt: 186.38 lbs, Wt-k.54 kg * * Date:
--- NOTE | ~2024-12-06 | CT_ITS ---
CT lung screening INDICATION: Tobacco use. COMPARISON: 11/15/2023. TECHNIQUE: CT examination of the entire thorax without contrast was performed using low dose technique. Thin section axial, sagittal and coronal images were included to increase sensitivity for small lung nodules. FINDINGS: PULMONARY NODULES: No suspicious noncalcified pulmonary nodules. OTHER PULMONARY FINDINGS: No significant nonnodular pleural or parenchymal abnormality is noted. No emphysematous changes are present. No pathologically enlarged lymph nodes are present. Normal heart size. Calcified hilar lymph node. UPPER ABDOMEN AND PERIPHERAL SOFT TISSUE: Limited views of the upper abdomen and peripheral soft tissue demonstrated no abnormalities. OSSEOUS STRUCTURES: Bone window shows no aggressive blastic or lytic lesions. IMPRESSION: 1. Lung-RADS category 1: No nodules or definitely benign nodules. Recommendations: 1 or 2: Annual screening with low-dose CT in 12 months. 2. No emphysematous changes are present. All CT scans at this facility are performed using low dose modulation techniques as appropriate to perform exam including the following: automated exposure control; use of iterative reconstruction technique; adjustment of the mA and/or kV according to patient size (this includes techniques or standardized protocols for targeted exams where dose is matched to indication/reason for exam). Reviewed, dictated and finalized at location S. IMPRESSION: 1. Lung-RADS category 1: No nodules or definitely benign nodules. Recommendations: 1 or 2: Annual screening with low-dose CT in 12 months. 2. No emphysematous changes are present. All CT scans at this facility are performed using low dose modulation techniqu es as appropriate to perform exam including the following: automated exposure c ontrol; use of iterative reconstruction technique; adjustment of the mA and/or kV according to patient size (this includes techniques or standardized protocol s for targeted exams where dose is matched to indication/reason for exam).
--- OUTSIDE RECORDS SUMMARY | 2024-12-06 15:49 | XMS_ITS | Clinical Summary ---
Author Organization [facility] Address [address] [place] [address] Care Team Providers Care Maintenance Of Way Superintendent Name Role Phone Clary Cardenas MD Primary Care Provider Active Problems Problem Noted Date Diagnosed Date Hx of tobacco use, presenting hazards to health 10/05/2023 Hypersomnia 10/05/2023 SOB (shortness of breath) 10/05/2023 Social History Tobacco Use Types Packs/Day Years Used Date Smoking Tobacco: Never Assessed Personal Safety Answer Date Recorded Getting School Help Needed Not on file 08/23 Comments Unknown Sex and Gender Information Value Date Recorded Sex Assigned at Not on file 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 Gender Identity Not on file Sexual Orientation Not on file Plan of Treatment Health Maintenance Due Date Last Done Comments Cervical Cancer Screening 1960 Colon Cancer Screening-Colonoscopy 1960 Depression Screening 1960 Fall Risk Assessment 1960 Hepatitis C Screening 1960 Osteoporosis Screening-Bone Density Scan 1960 Hepatitis B Screening 1977 Zoster Vaccine (3 of 3) 05/15/2021 03/20/2021, 11/29 Breast Cancer Screening-Mammogram 09/01/2022 022, 09/01/2021 Pneumococcal vaccine 65+ (3 of 3 - PCV20 or PCV21) 10/25/2023 10/24/2018, 08/21/2015 Well Visit 65+ 02/04/2024 Covid-19 Vaccine (6 - 2024-2 6 season) 2024 12/14/2022, 09/01/2021, 12/03/2020, Additional history exists Influenza Vaccine (#1) 2024 3, 11/26/2020, 12/15/2018 DTaP/Tdap/Td Vaccine (2 - Td or Tdap) 08/20/2025 08/21/2015 Insurance ANTHEM ACCESS ANTHEM ACCESS Care Teams Maintenance Of Way Superintendent Relationship Specialty Start Date End Date Clary Cardenas MD [address] [place] [address] PCP - General Family Medicine 10/05/23
--- OUTSIDE RECORDS SUMMARY | 2024-12-06 15:49 | XMS_ITS | Patient Health Record ---
Author Organization [facility] Address [address] [place] [address] Care Team Providers Care Senior Engineering Team Leader Name Role Phone Dr. Clary Cardenas Primary Care Provider [phone] Unavailable [phone] Migration, Provider Unavailable Unavailable Allergies Allergen (clinical [...] salicylate (FN) Salicylates Unknown Drug Allergy Active Results Component Value Reference Range Notes MRI : Wrist, left Reviewed date:08/09/2024 07:55:21 AM Interpretation: Performing Lab: Notes/Report: Hemoglobin A1c Reviewed date:10/03/2024 12:40:32 PM Interpretation: Performing Lab: Notes/Report: Thyroxine (T4) Free, Direct, S Reviewed date:10/03/2024 12:41:40 PM Interpretation: Performing Lab: Notes/Report: TSH Reviewed date:10/03/2024 12:41:21 PM Interpretation: Performing Lab: Notes/Report: CBC With Differential/Platel et Reviewed date:10/03/2024 12:41:49 PM Interpretation: Performing Lab: Notes/Report: Vitamin D, 25-Hydroxy Reviewed date:10/03/2024 12:41:58 PM Interpretation: Performing Lab: Notes/Report: Lipid Panel Reviewed date:10/03/2024 12:40:42 PM Interpretation: Performing Lab: Notes/Report: Comp. Metabolic Panel (14) Reviewed date:10/03/2024 12:41:30 PM Interpretation: Performing Lab: Notes/Report: Bone Density Reviewed date:08/29/2024 09:43:39 AM Interpretation: Performing Lab: Notes/Report: Reason For Referral Reason Please refer to Dr. Lange- Would like to see at [place]. Also would like it to be after MRI of wrist is done which was also ordered today Diagnosis 1 Pain in left wrist ( M25.532) Referral Organization [facility] Referring Provider First Name Antonella Referring Provider Last Name Keyon Referring Provider Speciality Nurse Prac titioner Referred Provider Specialty Hand Surgery General Notes Vanessa Huff 07/06 09:37:31 AM CDT >Waiting to send referral once MRI is done., Yarely Ramirez 07/12/2024 09:13:04 AM CDT >MRI scheduled for 07/13/24 at [facility]. Faxed referral to Dr. Lange [phone], Yarely Ramirez 07/18/2024 03:28:18 PM CDT >Pt hasn't heard from Dr. Lange's office and is requesting we follow up on referral, Inna Spring 07/19/2024 04:27:11 PM CDT >pt states she is scheduled but not until Sep 2024. She is having pain and helps care for her grandkids and this is really causing some concerns for her, she is willing to go elsewhere for her hand. Referral team can you call and see if she can get in sooner or somewhere else sooner?, Inna Spring 12/04/2024 08:50:17 AM CDT >pt having surgery later this month with Anisa - request for OV notes sent. Referral Priority Urgent Medications Medication SIG (Take, Route, Frequency, Duration) Notes Start Date End Date Status Tretinoin 0.1 % Cream External; Duration: 0 05/14/2022 Not-Taking Diclofenac Potassium oral; Duration: 0 *Pick strength-form from [employer] for eRX* 08/20/2021 Active Trulicity 4.5 MG/0.5ML Solution Auto-injector as directed Subcutaneous; Duration: 84 days 4.5 mg weekly Active Methotrexate Sodium 2.5 MG Tablet Oral; Duration: 0 08/20/2021 Not-Takin g Triamcinolone Acetonide 0.1 % Cream External two times a day; Duration: 0 06/30/2022 Not-Taking Losartan Potassium 50 MG Tablet 1 Oral every day; Duration: 0 01/12/2021 Active Ammonium Lactate 12 % Lotion External; Duration: 0 05/14/2022 Not-Taking Repatha SureClick 140 MG/ML Solution Auto-injector INJECT 1 ML (140 MG TOTAL) INTO THE SKIN EVERY 14 DAYS Subcutaneous; Duration: 90 Days Active FreeStyle Barry 14 Day Sensor - Miscellaneous USE TO TEST BLOOD SUGAR FOUR TIMES A DAY, CHANGE SENSOR EVERY 2 WEEKS Active traMADol HCl 50 MG Tablet 1 Oral 3 times a day; Duration: 30 days As needed 08/20/2024 Active Montelukast Sodium 10 mg Tablet TAKE 1 TABLET AT BEDTIME Active Methotrexate Sodium (PF) 50 MG/2ML Solution INJECT 0.8 ML INTO SKIN EVERY 7 DAYS Injection; Duration: 30 Days Not-Taking BD TB Syringe 27G X 1/2 1 ML Miscellaneous USE WITH METHOTREXATE INJECTION; Duration: 84 Days Active traMADol HCl 50 MG Tablet 1 tablet as needed Orally 3 times a day; Duration: 10 days 08/14/2024 Not-Taking Cefuroxime Axetil 500 MG Tablet 1 tablet Orally every 12 hrs; Duration: 10 days 12/01/2024 12/11/2024 Active Klayesta 283285 UNIT/GM Powder APPLY TOPICALLY UNDER ABDOMINAL PANNUS AND UNDER BREASTS 3 TIMES A DAY External; Duration: 14 Days Active metFORMIN HCl 500 MG Tablet 1 tablet Orally twice a day; Duration: 90 days please fill today Active Vitamin D (Ergocalciferol) 12965 UNIT Capsule 1 capsule Orally weekly; Duration: 90 days 08/20/2024 Active Immunizations Vaccine Route Administration Date Status Comme nts Zoster Unknown 11/29/2012 Administered ,sourcename : Historical information -source unspecified Source VFC Code: : Zoster IM Intramuscular 03/20/2021 Administered ,sourc ename : New immunization record ,immstatus : Complete Zoster IM Intramuscular 06/18/2021 [facility] ,immstatus : Complete Tdap Unknown 08/21/2015 Administered ,sourcename : Historical information -source unspecified Source VFC Code: : RSV-MAb (Respiratory syncytial virus immune globulin) IM Intramuscular 12/14/2022 Administered ,sourcename : New immunization record ,immstatus : Complete Pneumococcal polysaccharide PPV23 Unknown 10/24/2018 Administered ,sourcename : Historical information -source unspecified Source VFC Code: : Pneumococcal conjugate PCV 13 Unknown 08/21/2015 Administered ,sourcename : Historical information -source unspecified Source VFC Code: : Pfizer-Biontech Covid-19 Vaccine 1st dose Unknown 04/01/2020 Administered ,sourcename : Historical information -from other provider Source VFC Code: : Pfizer-Biontech Covid-19 Vaccine 1st dose Unknown 05/05/2020 Administered ,sourcename : Historical information -from other provider Source VFC Code: : Pfizer-Biontech Covid-19 Vaccine 1st dose IM Intramuscular 12/14/2022 Administered ,sourcename : N ew immunization record ,immstatus : Complete Pfizer-Biontech Covid-19 Vaccine 1st dose IM Intramuscular 11/09/2023 Administered ,sourcename : N ew immunization record ,immstatus : Complete Moderna Covid-19 Vaccine 1st dose Unknown 05/05/2020 Administered ,sourcename : Historical information -from other registry Source VFC Code: : Influenza, seasonal, injectable, preservative free, 3 yrs and above IM Intramuscular 11/09/2023 Administered ,sourcename : N ew immunization record ,immstatus : Complete Influenza, quadrivalent (IIV4), split virus, 6-35 months dosage IM Intramuscular 11/26/2020 Administered ,sourcename : N ew immunization record ,immstatus : Complete Influenza, quadrivalent (IIV4), split virus, 6-35 months dosage IM Intramuscular 01/13/2022 Administered ,sourcename : N ew immunization record ,immstatus : Complete Influenza, quadrivalent (IIV4), split virus, 6-35 months dosage IM Intramuscular 12/14/2022 Administered ,sourcename : N ew immunization record ,immstatus : Complete COVID 19 Vaccine mRNA, Comirnaty IM Intramuscular 11/30/2024 Administered Social History Tobacco Use: Social History Observation Description Date Details (start date - stop date) Current Smoker NA - NA Social History Tobacco Use: Social Info Question Answer Notes Tobacco Control (Standard) Tobacco use: Current every day smoker Section Notes: 02/15 PPD as of April 202302/15 PPD as of April 202302/15 PPD as April 2023 Problems Problem Type SNOMED Code ICD Code Onset Dates Problem Status W/U Status Risk Notes Problem Chronic pain (36109609) Other chronic pain (G89.29) Active confirmed Problem Allergic rhinitis (60398649) Acute allergic rhinitis (J30.9) Active confirmed Problem Diabetic peripheral neuropathy associated with type 2 diabetes mellitus (9801944785496) Type 2 diabetes mellitus with diabetic neuropathy, unspecified (E11.40) Active confirmed Problem Vitamin D deficiency (40776709) Vitamin D deficiency, unspecified (E55.9) Active confirmed Problem Cervicalgia (02461217) Cervicalgia (M54.2) Active confirmed Problem 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, 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 confirmed Problem Screening for malignant neoplasm of breast (657830894) Encounter for other screening for malignant neoplasm of breast (Z12.39) Active confirmed Problem 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 Problem Fatigue (69108470) Other fatigue (R53.83) Active confirmed Problem Lumbar radiculopathy (764033909) Radiculopathy, lumbar region (M54.16) Active confirmed Problem Shoulder joint pain (935138383) Pain in left shoulder (M25.512) Active confirmed Problem Localized, primary osteoarthritis of the shoulder region (573155941) Primary osteoarthritis, right shoulder (M19.011) 023 Active confirmed Problem Chronic ulcer of skin (71588248) Non-pressure chronic ulcer of skin of other sites limited to breakdown of skin (L98.491) Active confirmed Problem Constipation (68776215) Other constipation (K59.09) 01/26/2 023 Active confirmed Problem Allergic rhinitis (13871745) Allergic rhinitis, unspecified (J30.9) Active confirmed Problem Restless legs syndrome (92749478) Restless legs syndrome (G25.81) Active confirmed Problem Vitamin B deficiency (09385562) Deficiency of other specified B group vitamins (E53.8) Active confirmed Problem Non-toxic single thyroid nodule (408973940) Nontoxic single thyroid nodule (E04.1) Active confirmed Problem Benign neoplasm of adrenal gland (05760889) Benign neoplasm of unspecified adrenal gland (D35.00) Active confirmed Problem Hemangioma (766393965) Hemangioma unspecified site (D18.00) Active confirmed Problem Postmenopausal state (71305618) Asymptomatic menopausal state (Z78.0) Active confirmed Problem Abnormal weight loss (621774387) Abnormal weight loss (R63.4) Active confirmed Problem Tobacco use (928283164) Tobacco use (Z72.0) Active confirmed Problem Dizziness and giddiness (047968148) Dizziness and giddiness (R42) Active confirmed Problem Somnolence (15901555) Somnolence (R40.0) Active confirmed Problem Systemic lupus erythematosus (05918902) Systemic lupus erythematosus, organ or system involvement unspecified (M32.10) Active confirmed Problem Essential hypertension (63218279) Essential (primary) hypertension (I10) Active confirmed Problem Sleep apnea (73122843) Sleep apnea, unspecified (G47.30) Active confirmed Problem Hyperlipidemia (75554421) Hyperlipidemia, unspecified (E78.5) Active confirmed Problem Candidiasis of skin and nail (B37.2) Active confirmed Vital Signs Heart Rate 77 /min 11/30/2024 Temperature 98.0 degrees Fahrenheit 11/30/2024 Respiratory Rate 18 /min 08/20/2024 Height-cm 167.64 cm 11/30/2024 Oximetry 99 % 11/30/2024 Blood pressure diastolic 70 mm Hg 11/30/2024 Weight-kg 83.92 kg 11/30/2024 Height 66.00 in 11/30/2024 Blood pressure systolic 128 mm Hg 11/30/2024 Weight 185 lbs 11/30/2024 BMI 29.86 kg/m2 11/30/2024 Procedures Procedure Date Ordered Date Performed Result Body Sit e SPECIAL EYE EVALUATION 07/04/2024 07/03/2024 N/A Encounters Encounter Location Date Provider Diagnosis [address] [address] 05/21/2024 Dr. Clary Cardenas Essential (primary) hypertension I10 ; Type 2 diabetes mellitus with diabetic neuropathy, unspecified E11.40 ; Hyperlipidemia, unspecified E78.5 ; Systemic lupus erythematosus, organ or system involvement unspecified M32.10 and Easy bruising R23.[address] [address] 07/05/2024 Antonella Beckert Pain in left wrist M25.532 and Other chronic pain G89.[address] [address] 08/20/2024 Dr. Clary Cardenas Other chronic pain G89.29 ; Vitamin D deficiency, unspecified E55.9 ; Hyperlipidemia, unspecified E78.5 ; Systemic lupus erythematosus, organ or system involvement unspecified M32.10 ; Type 2 diabetes mellitus with diabetic neuropathy, unspecified E11.40 ; Asymptomatic menopausal state Z78.0 ; Tobacco use Z72.0 ; Other constipation K59.09 and Essential (primary) hypertension I10 [address] [address] 11/30/2024 Dr. Clary Cardenas Acute non-recurrent sinusitis, unspecified location J01.90 ; Preoperative clearance Z01.818 ; Acute allergic rhinitis J30.9 ; Encounter for immunization Z23 ; De Quervain's tenosynovitis M65.4 ; Systemic lupus erythematosus, organ or system involvement unspecified M32.10 ; Type 2 diabetes mellitus with diabetic neuropathy, unspecified E11.40 and 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 [address] 01/14/[address] [address] 01/15/[address] [address] 05/17/2024 Dr. Clary Cardenas Essential (primary) hypertension I10 ; Other fatigue R53.83 ; Type 2 diabetes mellitus with diabetic neuropathy, unspecified E11.40 ; Deficiency of other specified B group vitamins E53.8 ; Hyperlipidemia, unspecified E78.5 and Other residential (current) drug therapy Z79.[address] [address] 06/25/2024 Dr. Clary Cardenas [address] [address] 06/28/2024 Dr. Clary Cardenas [address] [address] 07/19/[address] [address] 08/09/[address] [address] 10/05/2024 Dr. Clary Cardenas Assessments Encounter Date Diagnosis (ICD Code) Assessment Notes Treatment Notes Treatment Clinical Notes Section Notes 05/17/2024 Essential (primary) hypertension (ICD-10 - I10) 05/21/2024 Essential (primary) hypertension (ICD-10 - I10) BP normalized, no changes suggested. 07/05/2024 Other chronic pain (ICD-10 - G89.29) 07/05/2024 Pain in left wrist (ICD-10 - M25.532) -Ongoing pain for about a month, no specefic injury. Pain has not improved -DDXs include De Quervain's tenosynovitis, arthritis, occult fracture, lupus flare.-Xray was unremarkable 1 month ago. - MRI without contrast to assess for small fracture and evaluate ligaments and tendons. Referral to a hand specialist. Prednisone taper prescribed: 60 mg for 2 days, 40 mg for 2 days, 20 mg for 2 days, and 10 mg for 2 days. 08/20/2024 Other chronic pain (ICD-10 - G89.29) 11/30/2024 Acute non-recurrent sinusitis, unspecified location (ICD-10 - J01.90) start abx if not improved in the next few days. 11/30/2024 Preoperative clearance (ICD-10 - Z01.818) Cleared for surgery as she is at a currently acceptable risk to proceed. 11/30/2024 Acute allergic rhinitis (ICD-10 - J30.9) manage with OTC agents. 08/20/2024 Vitamin D deficiency, unspecified (ICD-10 - E55.9) 05/17/2024 Other fatigue (ICD-10 - R53.83) 05/21/2024 Type 2 diabetes mellitus with diabetic neuropathy, unspecified (ICD-10 - E11.40) waiting for HBA1C. Feel well controlled. 05/21/2024 Hyperlipidemia, unspecified (ICD-10 - E78.5) continue medication 08/20/2024 Hyperlipidemia, unspecified (ICD-10 - E78.5) 11/30/2024 Encounter for immunization (ICD-10 - Z23) covid vaccine today. 05/17/2024 Type 2 diabetes mellitus with diabetic neuropathy, unspecified (ICD-10 - E11.40) 05/17/2024 Deficiency of other specified B group vitamins (ICD-10 - E53.8) 11/30/2024 De Quervain's tenosynovitis (ICD-10 - M65.4) Preoperative management for De Quervain's tenosynovitis surgery - Scheduled for release of the left first dorsal compartment on December 11, 2024 - Lifting restrictions anticipated for at least one month postoperatively, with gradual return to normal activity over 4-6 weeks - Advised to avoid lifting more than recommendations - Expected to wear a brace and avoid use of left arm for 2 weeks postoperatively - Full healing may take months or longer depending on recovery - Provided documentation for daycare coverage due to lifting restrictions post-surgery, to approximately one month after surgery (around January 11 to January 14) - Will modify documentation as needed for extended restrictions - Instructed to withhold losartan on the morning of surgery due to risk of intraoperative hypotension - No contraindications to surgery identified 08/20/2024 Systemic lupus erythematosus, organ or system involvement unspecified (ICD-10 - M32.10) 05/21/2024 Systemic lupus erythematosus, organ or system involvement unspecified (ICD-10 - M32.10) Seeing Dr. Pal cerda. 05/21/2024 Easy bruising (ICD-10 - R23.3) Improved off of medicine for rheumatology. 08/20/2024 Type 2 diabetes mellitus with diabetic neuropathy, unspecified (ICD-10 - E11.40) 08/20/2024 Asymptomatic menopausal state (ICD-10 - Z78.0) 11/30/2024 Systemic lupus erythematosus, organ or system involvement unspecified (ICD-10 - M32.10) Lupus management - Off methotrexate and other immunomodulatory medications temporarily - Planning to start new medication in January -F/U with rheumatology as directed. 05/17/2024 Hyperlipidemia, unspecified (ICD-10 - E78.5) 11/30/2024 Type 2 diabetes mellitus with diabetic neuropathy, unspecified (ICD-10 - E11.40) Diabetes mellitus medication management - Diabetes mellitus managed with metformin and Trulicity - Directed to take metformin twice daily except on the day of surgery, when it should be withheld - Advised to hold Trulicity the prior to surgery per anesthesia recommendations, due to risk of delayed gastric emptying and aspiration with general anesthesia 08/20/2024 Tobacco use (ICD-10 - Z72.0) 05/17/2024 Other residential (current) drug therapy (ICD-10 - Z79.899) 08/20/2024 Other constipation (ICD-10 - K59.09) 11/30/2024 Immunodeficiency due to drugs (ICD-10 - D84.821) 08/20/2024 Essential (primary) hypertension (ICD-10 - I10) 05/21/2024 Other Diabetes Management: - Awaiting A1c results; previous A1c was 5.6. Patient has been off Trulicity for a few weeks but continues metformin. Expectation of A1c to be under 7. - Plan to monitor A1c closely and adjust treatment as necessary based on results. - Follow-up appointment scheduled for August for diabetes checkup. 08/20/2024 Other Chronic left wrist pain/tendinopathy: - Persistent left wrist pain, likely tendinopathy, not improved with oral steroids or topical agents. Pain is severe, shooting, and significantly impacts daily activities, including caring for three children and a [id number]. Patient has tried multiple pain management strategies ( muscle cream, oral prednisone, tramadol, Tylenol Arthritis) with limited relief. Oral prednisone discontinued due to side effects (blood sugar changes, feeling unwell). - MRI of the wrist was performed at [facility]; ensure MRI report is sent to hand specialist (Dr. Lange) a second time. Patient has an appointment with Dr. Lange on September 18, 2024. Continue pain management with tramadol and Tylenol Arthritis as needed. Monitor for possible steroid injection or surgical intervention after hand specialist evaluation. Emphasize the importance of timely follow-up and communication with the office if there are delays in receiving results or appointments. Diabetes management: - Diabetes well controlled on current regimen (Trulicity 4.5 mg and metformin 500 mg). Continue current therapy. Plan for repeat labs to monitor A1c and other parameters; lab order to be faxed to [facility] for patient convenience. Patient instructed to contact the office if lab results are not received within five days of testing. Hyperlipidemia: - Hyperlipidemia well controlled on current regimen, including Repatha. Continue current therapy. No changes needed. Continue Repatha. Vitamin D supplementation: - Vitamin D level within normal range on current supplementation. Refill vitamin D 50,000 IU weekly for 90 days with three refills (one year supply). Continue current supplementation. Constipation (secondary to tramadol): - Constipation likely related to tramadol use. Monitor symptoms; encourage hydration and dietary fiber. No new intervention at this time. Smoking/tobacco use: - Ongoing tobacco use, reduced to 2-3 cigarettes per day, not currently using Chantix. Encourage continued reduction/cessation and offer support as needed. No new pharmacologic intervention at this time. Lab monitoring: - Routine lab monitoring required for diabetes and general health. Fax lab order to [facility]; patient to complete labs at convenience. Patient instructed to call the office if lab or imaging results are not received within five days. DEXA scan not completed: - DEXA scan not previously completed due to lack of machine availability. Reorder DEXA scan. Plan Of Treatment Next Appt Details Provider Name:Dr. Clary alonzo, 12/07/2024 03:30:00 PM, [employer] [address], [place], [address], [phone] Provider Name:Dr. Clary alonzo, 11/28/2025 04:00:00 PM, [employer] [address], [place], [address], [phone] Insurance Providers Payer Name Payer Address Payer Phone Subscriber Number Group Number Insured Name Patient Relationship to Insured Coverage Start Date Coverage End Date NGS Medicare RHC [address] [place] [phone] [id number] Rayne Ha Self - patient is the insured 5 [employer] [address] [place] [address] [id number] Rayne Ha Self - patient is the insured 3 6 Medical (General) History Medical History History ICD Code Cyst of kidney, acquired N28.1 Cervicalgia M54.2 Essential (primary) hypertension I10 Hyperlipidemia, unspecified E78.5 Other fatigue R53.83 Systemic lupus erythematosus, organ or s ystem involvement unspecified M32.10 Vitamin D deficiency, unspecified E55.9 Type 2 diabetes mellitus with diabetic n europathy, unspecified E11.40 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 Other constipation K59.09 Benign neoplasm of unspecified adrenal g land D35.00 Hemangioma unspecified site D18.00 Deficiency of other specified B group vi tamins E53.8 Nontoxic single thyroid nodule E04.1 Tobacco use Z72.0 Restless legs syndrome G25.81 Primary osteoarthritis, right shoulder M 19.011 Sleep apnea, unspecified G47.30 Somnolence R40.0 Candidiasis of skin and nail B37.2 Non-pressure chronic ulcer o f skin of other sites limited to breakdown of skin L98.491 Abnormal weight loss R63.4 Allergic rhinitis, unspecified J30.9 Dizziness and giddiness R42 Pain in left shoulder M25.512 Radiculopathy, lumbar region M54.16 Asymptomatic menopausal state Z78.0 Encounter for other screening for malign ant neoplasm of breast Z12.39 Surgical History Surgery Date(Month/Year) renal biopsy ,notes : SLE (90599) L HRT CATH TRNSPTL P UNCTURE ,notes : 2010; 50% ostial [employer] lesion Cystoscopy ,notes : nl- Overactive bladd er 11/16/21
--- OUTSIDE RECORDS SUMMARY | 2024-12-06 15:49 | XMS_ITS | Clinical Summary ---
Author Organization [facility] Address [address] [place] [id number] Phone Care Team Providers Care Favor Maker Name Role Phone Unavailable Primary Care Provider Unavailabl e Medications DULoxetine (CYMBALTA) [address] capsule 1 tab/cap qday 11/25/2013 Active hydroxychloroqu ine (PLAQUENIL) 200 MG tablet 1 tab/cap bid 11/25/2013 A ctive insulin aspart (NOVOLOG) 100 UNIT/ML injection as directed 0 09/15/2015 Active cyclobenzaprine (FLEXERIL) 5 MG tablet 2 tabs/caps qday 11/26/2013 Active insulin detemir (LEVEMIR) 100 UNIT/ML injection as directed 0 09/15/2015 Active Active Problems Problem Noted Date Diagnosed Date Systemic lupus erythematosus 09/15/2015 Hematuria 11/25/2013 Other and unspecified nonspecific immunological findings 11/25/2013 Overview (04/29/2018): Converted unresolved ICD9, potential mismatch. Myalgia and myositis, unspecified 11/25/2013 Overview (04/29/2018): Converted unresolved ICD9, potential mismatch. Myalgia and myositis, unspecified 11/25/2013 Overview (04/29/2018): Converted unresolved ICD9, potential mismatch. Type 2 diabetes mellitus without complication Family History Medical History Relation Comments Diabetes mellitus Father Diabetes mellitus Sibling Kidney disease Neg Hx Kidney stone Neg Hx Relation Status Comments Father Sibling Social History Tobacco Use Types Packs/Day Years Used Date Smoking Tobacco: Never Assessed Comments Unknown Sex and Gender Information Value Date Recorded Sex Assigned at Not on file Legal Sex Female 9:42 AM [facility] Gender Identity Not on file Sexual Orientation Not on file Last Filed Vital Signs Vital Sign Reading Time Taken Comments Blood Pressure 124/72 09/15/2015 12:01 AM CDT Sitting, Right Pulse - - Temperature 37.7 C (99.8 F) 09/15/2015 12:01 AM CDT Respiratory Rate - - Oxygen Saturation - - Inhaled Oxygen Concentration - - Weight 99.8 kg (220 lb) 09/15/2015 12:0 1 AM CDT Height 165.1 cm (5' 5) 09/15/2015 12:0 1 AM CDT Body Mass Index 36.61 09/15/2015 12:01 AM CDT Plan of Treatment Not on file
--- OUTSIDE RECORDS SUMMARY | 2024-12-06 15:49 | XMS_ITS | Clinical Summary ---
Author Organization [facility] Address [address] [facility] [place] [address] Care Team Providers Care Chrome Cleaner Name Role Phone Clary Cardenas MD Primary Care Provider [phone] Mark Soler MD Unavailable [phone] Source Comments [facility],non-owned Affiliates and Associated Physician Practices is amultiple site organization consisting of ambulatory clinics and hospital sitesin [place], [place], [place] and [place]. This disclosure is being madepursuant to the Care Everywhere program and may not contain all information available regarding this patient. Last updated 17.[facility] Allergies Active Allergy Reactions Criticality Noted Date Comments Aspirin Urticaria 11/07/2013 Medications * Be aware that medications may not be up to date on this document. Alwaysverify current medications with the patient. hydroxychloroq uine (PLAQUENIL) 200 MG tablet Take 1 Tab by mouth 2 times daily. 180 Tab 1 4 Active Additional Information Patient taking differently:200 mg Oral 2 TIMES DAILY,Indications: for Lupus, Reported on 10/16/2014 traMADol (ULTRAM) 50 MG tabletIndicati ons:Polymyalgi a (HCC),Positive WENDI (antinuclear antibody) Take 1-2 Tabs by mouth once daily as needed. 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 Papular rash, localized 11/07/2013 Fibromyalgia 11/07/2013 Family History Medical History Relation Name Comments Diabetes Brother Diabetes Father Relation Name Status Comments Brother Father Social History Tobacco Use Types Packs/Day Years Used Date Smoking Tobacco: Every Day Cigarettes 0.5 20 Smokeless Tobacco: Never Alcohol Use Standard Drinks/Week Comments No 0 (1 standard drink = 0.6 oz pur e alcohol) Comments No Sex and Gender Information Value Date Recorded Sex Assigned at Not on file Legal Sex Female 11:40 AM [employer] Gender Identity Not on file Sexual Orientation Not on file 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 Not on file Not on file Not on norm e Last Filed Vital Signs Vital Sign Reading Time Taken Comments Blood Pressure 120/79 10/14/2015 3:03 PM CDT Pulse 90 10/14/2015 3:03 PM CDT Temperature 36.8 C (98.2 F) 10/14/2015 3:03 PM CDT Respiratory Rate 16 10/14/2015 3:03 PM CDT Oxygen Saturation 97% 10/14/2015 3:03 PM CDT Inhaled Oxygen Concentration - - Weight 101.5 kg (223 lb 11.2 oz) 10/14/2015 3:03 PM CDT Height 166.4 cm (5' 5.5) 10/14/2015 3:03 PM CDT Body Mass Index 36.66 10/14/2015 3:03 PM CDT Plan of Treatment Health Maintenance Due Date Last Done Comments BONE DENSITY TESTING 1959 COLOGUARD (AGES 45-75) - COL ON CA SCREENING 1959 CT COLONOGRAPHY - COLON CA SCREENING 1959 FIT - COLON CA SCREENING 1959 FLEX SIG - COLON CA SCREENING 1959 LIPID TESTING 1959 MAMMOGRAM 1959 HIV SCREENING 1974 HEPATITIS C SCREENING 01/29/1977 DTAP/TDAP/TD VACCINES (1 - Tdap) 1978 PNEUMOCOCCAL VACCINE 50+ (1 of 1 - PCV) 2009 ZOSTER VACCINE (1 of 2) 2009 COLON MONITORING 07/14/2023 07/13/2013, 10/23/2010 COLONOSCOPY - COLON CA SCREENING 07/14/2023 07/13/2013, 10/23/2010 Colorectal Cancer Screening 07/14/2023 DEPRESSION SCREENING 02/15/2024 COVID-19 VACCINE (1 - 2023-2 5 season) 2024 INFLUENZA VACCINE (#1) 2024 Respiratory Syncytial Virus (RSV) Vaccine Pt: or over 60 yrs (1 - 1-dose 75+ series) 2034 HEPATITIS B VACCINE Aged Out No longe r eligible based on patient's age to complete this topic HIB VACCINE Aged Out No longer eligi ble based on patient's age to complete this topic HPV VACCINE Aged Out No longer eligi ble based on patient's age to complete this topic MENINGOCOCCAL (Group B) VACCINE SHARED DECISION-MAKING Aged Out No longer eligible based on patient's age to complete this topic MENINGOCOCCAL GROUPS A/C/Y/W VACCINE Aged Out No longer eligible b ased on patient's age to complete this topic Procedures Procedure Name Priority Date/Time Associated Diagnosis Comments ENDOSCOPY, COLON, SCREENING Routine 07/13/2013 from Last 3 Months or Most Recently Relevant to Health Maintenance Results * ENDOSCOPY, COLON, SCREENING (07/13/2013) Maricarmen Weaver MD GI PROCEDURE ORDERABLES Zamzam l Result from Last 3 Months or Most Recently Relevant to Health Maintenance Insurance [address] [place] [address] Care Teams Chrome Cleaner Relationship Specialty Start Date End Date Clary Cardenas MD PCP - General Family Medicine 12/25/12 Mark Soler MD Nephrology 01/01/14
== END 2024-12-06 14:42 | disposition home or self-care (01) ==
PROVIDERS: PCP Family Medicine; Visit Provider Internal Medicine Pulmonary Disease
DX: Z12.2 Encounter for screening for malignant neoplasm of respiratory organs (principal); Z87.891 Personal history of nicotine dependence
CPT/HCPCS: 71271